=== PATIENT | female | born 1960 | race Caucasian/White ===

== ENCOUNTER 2019-01-25 07:11 | Day surgery (SDC) | payer OTHER ==
[~2019-01-25] VITALS: Ht 160 cm; Wt 63.4 kg
[~2019-01-25 07:11] MED LIST: ACET650SUP; ALBU90OI61 INH; AMOX875 PO; ATOR20 PO; BENA20; Benazepril HCl5 MG PO; CENTRUM ADULTS1 EACH PO; GLIM4 PO; GLIP10ER; HYDGUAL120 PO; IBUP800; LANS30EC PO; META800; METF500 PO; MULTCH; MULVITA; NATURAL LUTEIN20 MG PO; Norco 10-325 T1 EACH PO; XIGDUO XR 5 MG1 EAC1 PO; Zofran4 MG PO
== END 2019-01-25 09:30 | disposition home or self-care (01) ==
LOC: ORSCSDS 07:11
PROVIDERS: Internal Medicine Gastroenterology
PROC: 0DJD8ZZ Inspection of Lower Intestinal Tract, Via Natural or Artificial Opening Endoscopic (ICD-10-PCS; principal; 2019-01-25 08:30)
DX: Z12.11 Encounter for screening for malignant neoplasm of colon (principal); I10 Essential (primary) hypertension; E11.9 Type 2 diabetes mellitus without complications; E78.5 Hyperlipidemia, unspecified; J45.909 Unspecified asthma, uncomplicated; Z79.899 Other long term (current) drug therapy; F17.210 Nicotine dependence, cigarettes, uncomplicated
CPT/HCPCS: 82947; J2704; J7120

== ENCOUNTER 2019-05-13 11:33 | Observation (INO) | payer OTHER ==
[~2019-05-13] VITALS: Ht 160 cm; Wt 64.6 kg
[~2019-05-13 11:33] MED LIST changes: -ATOR20 PO; +ATOR40TA PO; -Benazepril HCl5 MG PO; -CENTRUM ADULTS1 EACH PO; -GLIM4 PO; -NATURAL LUTEIN20 MG PO; -Norco 10-325 T1 EACH PO; -XIGDUO XR 5 MG1 EAC1 PO
[2019-05-13 12:14] LABS: BASOPHILS ABSOLUTE AUTO 0.05 K/mm3 (0.00-0.23); BASOPHILS PERCENT AUTO 1 % (0-2); EOSINOPHILS PERCENT AUTO 1 % (0-6); Hematocrit 40.3 % (33.0-51.0); Hemoglobin 13.3 g/dL (11.5-16.0); IMMATURE GRAN ABSOLUTE AUTO 0.06 K/mm3 (0.00-0.10); IMMATURE GRAN PERCENT AUTO 1 % (0-1); LYMPHOCYTES ABSOLUTE AUTO 2.55 K/mm3 (0.84-5.20); LYMPHOCYTES PERCENT AUTO 32 % (21-46); MONOCYTES PERCENT AUTO 5 % (4-13); Mean Corpuscular HGB 27.7 pg (26.0-34.0); Mean Corpuscular Volume 84 fL (80-100); Mean Platelet Volume 9.9 fL (9.1-12.4); NEUTROPHILS ABSOLUTE AUTO 4.75 K/mm3 (1.96-9.15); NEUTROPHILS PERCENT AUTO 60 % (41-73); Platelet Count 347 K/mm3 (150-400); RDW Coefficient Variation 12.6 % (11.7-14.2); RDW Standard Deviation 38.3 fL (35.1-46.3); White Blood Cell Count 7.91 K/mm3 (4.00-11.30)
[2019-05-13 12:25] LABS: Source, Urine Clean Catch
[2019-05-13 12:31] LABS: Appearance, Urine Clear (Clear); Bilirubin, Urine Neg (Neg); Blood, Urine Neg (Neg); Color, Urine Yellow (P-Yellow); Glucose Qualitative, Urine 4+ (Neg); Ketones, Urine 3+ (Neg); Leukocyte Esterase, Urine Neg (Neg); Nitrite, Urine Neg (Neg); Protein, Urine Neg (Neg); Urobilinogen, Urine NORM (Normal)
[2019-05-13 12:31] LABS: International Normalized Ratio 0.97; Prothrombin Time Results 10.3 Sec (9.7-11.5)
[2019-05-13 12:32] LABS: Alanine Aminotransfer (ALT/SGP 27 U/L (12-78); Albumin, Blood 3.8 g/dL (3.4-5.0); Albumin/Globulin Ratio 1.2 (0.8-1.8); Alk Phos 118 U/L (50-136); Anion Gap 8 mmol/L (6-16); Aspartate Aminotrans (AST/SGOT 13 U/L (12-37); Bilirubin, Total 0.5 mg/dL (0.1-1.0); Blood Urea Nitrogen 10 mg/dL (8-24); Bun/Creatinine Ratio 19.2 (12.0-20.0); CO2, Blood 27 mmol/L (21-32); Calcium, Blood 8.8 mg/dL (8.5-10.1); Chloride, Blood 105 mmol/L (98-108); Creatinine, Blood 0.52 mg/dL (0.40-1.00); Globulin, Blood 3.3 g/dL (2.2-4.0); Glomerular Filtration Rate >60 (60-); Glucose, Blood 274 mg/dL (70-99); Potassium, Blood 3.8 mmol/L (3.5-5.5); Sodium, Blood 140 mmol/L (136-145); Total Protein, Blood 7.1 g/dL (6.4-8.2)
[2019-05-13] MEDS ORDERED: Benazepril HCl5 MG PO (12:46)
[2019-05-13] MEDS ORDERED: GLIM4 PO (12:46)
[2019-05-13] MEDS ORDERED: Norco 10-325 T1 EACH PO (12:47)
[2019-05-13] MEDS ORDERED: NATURAL LUTEIN20 MG PO (12:47)
[2019-05-13] MEDS ORDERED: XIGDUO XR 5 MG1 EAC1 PO (12:47)
[2019-05-13] MEDS ORDERED: CENTRUM ADULTS1 EACH PO (12:48)
[2019-05-13] MEDS ORDERED: Metformin HCl1000 MG PO (13:06)
--- NOTE | 2019-05-13 14:59 | NUR ---
DR SALAZAR IN TO SEE PT.
--- NOTE | 2019-05-13 17:48 | NUR ---
PT ARRIVED TO THE UNIT, PT TRANSFERED TO BED WITH NO ASSISTANCE. ASSESSMENTS DONE, MORGAN OROZCO SWALLING EVALUATED, PT HAD NO DIFFICULTY SWALLOWING WATER. PT REQUESTED SOMETHING TO EAT AND SNACK AND WATER WERE PROVIED.
--- NOTE | 2019-05-13 18:07 | NUR ---
PT TO MRI.
[2019-05-14 05:19] LABS: CHOL/HDL RATIO 4.2; Cholesterol 169 mg/dL (50-200); HDL Cholesterol 40 mg/dL (>39); LDL/HDL RATIO Unable to Calculate; Low Density Lipoprotein Chol Unable to Calculate mg/dL (0-110); Triglycerides 410 mg/dL (30-160); Very Low Density Lipoprot Chol 82 mg/dL (6-32)
--- NOTE | 2019-05-14 06:17 | NUR ---
SHIFT SUMMARY: 58 Y/O FEMALE RESTED COMFORTABLY ALL SHIFT WITH NO NEUROLOGICAL DEFICITS NOTED, LEFT LEG PUSH SLIGHTLY WEAKER THAN RIGH LEG PUSH, ALERT AND ORIENTED X 4, GOOD GAG REFLEX, GAI SLOW AND STEADY TO BATHROOM X 1 STANDBY ASSIST (PT CALLED FOR ASSIST); DENIES PAIN OR NAUSEA, HAPPY AND COOPERATIVE, BED LOW POSITION, CALL LIGHT AT SIDE.
[2019-05-14] MEDS ORDERED: ASPI81CH PO (11:19)
[2019-05-14] MEDS ORDERED: LOW DOSE ASPIRI81 MG PO (11:19)
[2019-05-14] MEDS ORDERED: CLOP75 PO (11:20)
[2019-05-14] MEDS ORDERED: BASAGLAR K100 UNIT/1 SC (16:22)
--- NOTE | 2019-05-14 17:40 | NUR ---
PT'S BG LEVELS WERE ELEVATED THIS SHIFT, COLLABORATED WITH DR IN REGARDS TO GLUCOSE CONTROL. PT DISCHARGED HOME. PROVIDED INSTRUCTIONS ABOUT NEW MEDICATION AND HAD PT DEMONSTRATE HOW TO SELF ADMINISTER LANTUS, FIANCE AT BEDSIDE DURING TEACHING. PT LEFT UNIT VIA WHEELCHAIR FIANCE DROVE HOME IN PERSONAL VEHICLE. PT INSTRUCTED TO KEEP CONTACT WITH PRIMARY CARE PROVIDER AND TO MONITOR GLUCOSE LEVELS AT HOME AND TO MONITOR FOR SYMPTOMS OF TIA IN THE FUTURE.
== END 2019-05-14 17:20 | disposition home or self-care (01) ==
LOC: ER 11:33 → MEDS 11:34 → ENPENDDIS 05-14 10:50 → MEDS 05-14 17:20
PROVIDERS: Physician Assistant; ADMIT Family Medicine
DX: G45.9 Transient cerebral ischemic attack, unspecified (principal); E11.9 Type 2 diabetes mellitus without complications; I10 Essential (primary) hypertension; E78.5 Hyperlipidemia, unspecified; Z88.5 Allergy status to narcotic agent; Z88.2 Allergy status to sulfonamides; Z79.899 Other long term (current) drug therapy; Z79.84 Long term (current) use of oral hypoglycemic drugs
CPT/HCPCS: 36415; 70450; 70496; 70551; 80053; 80061; 81003; 82947; 83036; 85025; 85610; 85730; 93005; 93010; 93306; 93880; 99285-25; A9270; G0378; Q9967

== ENCOUNTER → 2019-05-19 | Outpatient (CLI) | payer OTHER ==
[~2019-05-19] MED LIST changes: +ASPI81CH PO; +BASAGLAR K100 UNIT/1 SC; +Benazepril HCl5 MG PO; +CENTRUM ADULTS1 EACH PO; +CLOP75 PO; +GLIM4 PO; +LOW DOSE ASPIRI81 MG PO; +Metformin HCl1000 MG PO; +NATURAL LUTEIN20 MG PO; +Norco 10-325 T1 EACH PO; +XIGDUO XR 5 MG1 EAC1 PO
== END | disposition home or self-care (01) ==
LOC: LAB SHORT 10:45 → LAB 10:45
DX: E11.9 Type 2 diabetes mellitus without complications (principal)
CPT/HCPCS: 82043

== ENCOUNTER → 2020-02-05 | Outpatient (CLI) | payer OTHER | END | disposition home or self-care (01) | LOC: LAB 15:54 → LAB SHORT 15:54 | DX: R30.0 Dysuria (principal) | CPT/HCPCS: 87077; 87086; 87186 ==

== ENCOUNTER → 2021-12-31 | Outpatient (CLI) | payer OTHER | END | disposition home or self-care (01) | LOC: LAB 16:23 → LAB SHORT 16:23 | DX: E11.65 Type 2 diabetes mellitus with hyperglycemia (principal) | CPT/HCPCS: 82043 ==

== ENCOUNTER → 2023-08-06 | Outpatient (CLI) | payer OTHER | END | disposition home or self-care (01) | LOC: LAB 11:28 → LAB SHORT 11:28 | DX: E11.65 Type 2 diabetes mellitus with hyperglycemia (principal) | CPT/HCPCS: 82043 ==

== ENCOUNTER 2024-01-03 13:01 | Emergency (ER) | payer OTHER ==
[~2024-01-03] VITALS: Ht 162.6 cm; Wt 56.7 kg
[2024-01-03] MEDS ORDERED: Ketorolac Tromethamine 30mg Vial IM ONE (16:20)
[2024-01-03 17:28] VITALS: BP 133/73
== END 2024-01-03 17:31 | disposition home or self-care (01) ==
LOC: ER 13:01
DX: R51.9 Headache, unspecified (principal); I10 Essential (primary) hypertension; E11.9 Type 2 diabetes mellitus without complications; E78.5 Hyperlipidemia, unspecified; Z86.73 Personal history of transient ischemic attack (TIA), and cerebral infarction without residual deficits; Z88.2 Allergy status to sulfonamides; Z88.5 Allergy status to narcotic agent; Z79.84 Long term (current) use of oral hypoglycemic drugs; Z79.82 Long term (current) use of aspirin; Z79.02 Long term (current) use of antithrombotics/antiplatelets; Z79.899 Other long term (current) drug therapy
CPT/HCPCS: 96372; 99283-25; J1885

== ENCOUNTER → 2024-12-04 | Outpatient (CLI) | payer OTHER | LOC: LAB SHORT 19:16 → LAB 19:16 | DX: R30.0 Dysuria (principal) | CPT/HCPCS: 87077; 87086; 87186 ==

== ENCOUNTER → 2024-12-13 | Outpatient (CLI) | payer OTHER | LOC: LAB 17:28 → LAB SHORT 17:28 | DX: R30.0 Dysuria (principal) | CPT/HCPCS: 87086 ==